=== PATIENT | female | born 1965 | race Caucasian/White ===

== ENCOUNTER → 2016-08-05 | Outpatient (CLI) | payer BC ==
--- NOTE | ~2016-08-05 | CR172 ---
[facility] A Service of [facility] & [facility] RADIOLOGY TEXT RESULTS PATIENT: LAVELL MCFARLAND LOCATION: [facility] : 67 UNIT #: [id number] AGE: [address]: Sharee Thao MD SEX: F ORDER DR: [id number] [facility] [address] [place], [place] [address] [id number] O MR#: [id number] Acc #: [id number] NAME: LAVELL MCFARLAND : 1965 SEX: F STUDY DATE/TIME: 08/05/2016 11:51 UNIT: [facility] ROOM: STUDY DESCRIPTION: CR Knee 3 Views Lt Attending Physician: Sharee Thao M.D. Referring Physician: Sharee Thao M.D. Ordering Physician: Sharee Thao M.D. Primary Care Physician: Sharee Thao M.D. MEDICAL IMAGING REPORT This report is preliminary unless electronic signature is present STUDY Left knee, 3 views. HISTORY SUPPLIED Osteoarthritis. Pain beginning 9 days ago. FINDINGS Three views of the left knee are submitted. There is generalized osteopenia. Bony elements appear otherwise intact. No fractures or lytic or blastic lesions are seen. CONCLUSION Osteopenia. Otherwise negative. Dictated by... Rene Moran M.D. THIS IS AN ELECTRONICALLY VERIFIED REPORT Rene Moran M.D. at 08/08/2016 9:21 AM SANDRA/radha TD: 08/05/2016 19:41 JOB #: [id number] MEDICAL IMAGING REPORT Page 1 of 1 COPY
== END | disposition home or self-care (01) ==
LOC: CRAD 10:45
DX: M17.12 Unilateral primary osteoarthritis, left knee (principal); M85.862 Other specified disorders of bone density and structure, left lower leg
CPT/HCPCS: 73562

== ENCOUNTER → 2016-08-10 | Outpatient (CLI) | payer BC ==
--- NOTE | ~2016-08-10 | MR103 ---
[facility] A Service of [facility] & [facility] RADIOLOGY TEXT RESULTS PATIENT: LAVELL MCFARLAND LOCATION: [facility] : 67 UNIT #: [id number] AGE: [address]: Sharee Thao MD SEX: F ORDER DR: [id number] [facility] [address] [place], [place] [address] [id number] O MR#: [id number] Acc #: [id number] NAME: LAVELL MCFARLAND : 1965 SEX: F STUDY DATE/TIME: 08/10/2016 9:02 UNIT: [facility] ROOM: STUDY DESCRIPTION: MR Knee Wo Contrast Lt Attending Physician: Sharee Thao M.D. Referring Physician: Sharee Thao M.D. Ordering Physician: Sharee Thao M.D. Primary Care Physician: Sharee Thao M.D. MRI CENTER REPORT This report is preliminary unless electronic signature is present. EXAM MRI of the left knee HISTORY 51-year-old female tripped over rug while carrying boxes at work approximately 2 weeks ago, July 28, 2016, then 1 week later fell on left knee again. Pain and swelling. Knee pops out on placement of weightbearing. COMPARISON Left knee films 08/05/2016 FINDINGS Multiplanar multiecho imaging was performed of the left knee utilizing a high field magnet and dedicated protocol. Examination demonstrates spurring of the tibial spine, spurring of the tibial margins compatible early degenerative change. Trace amount of edema is noted in the posterior tibia at the tibial insertion of the PCL most likely represents enthesopathic marrow changes. Small knee effusion. 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 Subtle signal abnormality at the midbody segment suggest a developing horizontal cleavage tear. Mild cartilage thinning and mild chondromalacia medial compartment. In the lateral compartment the meniscus and articular cartilage appears intact. In the patellofemoral compartment there is a small focus of high-grade chondromalacia medial patellar facet estimated about 5 mm. Trochlear cartilage unremarkable. The cruciate and collateral ligaments appear intact. Extensor mechanism unremarkable. Extraarticular soft tissues STS. [facility] A Service of [facility] RADIOLOGY TEXT RESULTS PATIENT: LAVELL MCFARLAND LOCATION: [facility] : 67 UNIT #: [id number] AGE: [address]: Sharee Thao MD SEX: F ORDER DR: unremarkable. IMPRESSION 1. Diffuse myxoid degeneration medial meniscus with a suspected developing radial tear root attachment posterior horn of the medial meniscus as well as a developing horizontal cleavage tear midbody segment meniscus. Mild medial meniscal extrusion. 2. 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 Dictated by... Emma Blackburn M.D. THIS IS AN ELECTRONICALLY VERIFIED REPORT Emma Blackburn M.D. at 08/11/2016 3:42 PM RUBÉN/clare TD: 08/11/2016 07:34 JOB #: [id number] MRI CENTER REPORT Page 1 of 1 COPY
== END | disposition home or self-care (01) ==
LOC: CMRI 07:39
DX: M25.562 Pain in left knee (principal)
CPT/HCPCS: 73721